=== PATIENT | male | born 1995 ===

== ENCOUNTER 2024-10-20 20:50 | Emergency (ER) | payer SELFPAY ==
[~2024-10-20] VITALS: Ht 177.8 cm; Wt 75.5 kg
[2024-10-20 22:32] VITALS: BP 110/74; PULSE 80; RESP 16; TEMP 98.2; O2SAT 99
== END 2024-10-20 22:34 | disposition home or self-care (01) ==
LOC: ER 20:51
DX: S01.81XD Laceration without foreign body of other part of head, subsequent encounter (principal); Z48.02 Encounter for removal of sutures; X58.XXXD Exposure to other specified factors, subsequent encounter
CPT/HCPCS: 99281